=== PATIENT | male | born 1940 | race Caucasian/White ===

== ENCOUNTER 2017-08-25 07:59 | Day surgery (SDC) | payer MEDICARE ==
[2017-08-14 10:34] VITALS: BMI 24.9
[2017-08-25] MEDS ORDERED: Lidocaine/Epinephrine 1% 1:100000 10 ML IJ ONE (09:06)
[2017-08-25] MEDS ORDERED: Bupivacaine HCl 0.25% PF (10 ml) Inj ONE (09:06)
[2017-08-25] MEDS: ceFAZolin IV 2 gm in Dextrose 2 GM/50 ML BAG IVPB ONE ×2 (09:15→09:29)
--- NOTE | 2017-08-25 11:12 | PCM.SURG1 ---
Surgeon's Initial Post Op Note - Surgeon's Notes Surgeon: Milan Bowens MD [employer]: SHELBY Hoffman Type of Anesthesia: Local Pre-Operative Diagnosis: Sebaceous cyst of back 3x2 cm Operative Findings: Sebaceous cyst of back 3x2 cm Post-Operative Diagnosis: Sebaceous cyst of back 3x2 cm Operation Performed: Excision of Sebaceous cyst of back 3x2 cm. Layered closure of wound 3x2 cm Specimen/Specimens Removed: Sebaceous cyst Estimated Blood Loss: EBL {In ML}: 5 Blood Products Given: N/A Drains Used: No Drains Post-Op Condition: Good Date of Surgery/Procedure: 08/25/17 Time of Surgery/Procedure: 11:11
[2017-08-25 12:14] VITALS: BP 125/72; PULSE 75; RESP 20; TEMP 97.8; O2SAT 97
--- NOTE | 2017-08-25 22:01 | OP ---
PROCEDURE DATE: 08/25/2017 SURGEON: Bret Bowens MD [employer]: SHELBY Hoffman. PREOPERATIVE DIAGNOSES: Sebaceous cyst of the upper back. POSTOPERATIVE DIAGNOSES: Sebaceous cyst of the upper back. PROCEDURES: 1. Excision of sebaceous cyst of the upper mid back, 3 x 2 cm in size. 2. Layered closure of the wound, 3 x 2 cm size. TYPE OF ANESTHESIA: Local anesthesia plus sedation. ESTIMATED BLOOD LOSS: Around 5 mL. DRAINS: None. PATHOLOGY: The sebaceous cyst was sent to the pathology. COMPLICATIONS: None. INTRAOPERATIVE FINDINGS: The patient had approximately 3 x 2 cm sebaceous cyst of the upper mid back. DESCRIPTION OF PROCEDURE: On intraoperative steps, this 77-year-old male was diagnosed with a sebaceous cyst of the mid upper back and the patient was consented for the excision of the cyst and brought to the OR, placed in right lateral position. The back was prepped and draped in the usual sterile fashion. Local anesthesia was injected and elliptical incision was made and upper and lower flap was created with the medial and the lateral dissection was done. The cyst was completely excised from the underlying fascia and the subcutaneous tissue and it was sent for the table for pathology. Wound was irrigated. Now the upper flap was sutured with the underlying fascia and subcutaneous tissue. Lower flap was sutured to the underlying fascia and subcutaneous tissue. The deep layer of the subcu was taken with a 2-0 Vicryl. Another layer with 3-0 Vicryl and skin with 4-0 Monocryl and another layer of the skin with 5-0 nylon and dry sterile dressing was applied. The patient tolerated the procedure well. Count of the instrument and gauze was correct. There was no apparent complication. The patient was reversed from sedation and sent to the postanesthesia care unit in stable condition. Bret Bowens MD
== END 2017-08-25 10:48 | disposition home or self-care (01) ==
LOC: C.SDS 07:59
PROVIDERS: ATTEND Surgery Surgical Critical Care
DX: L72.3 Sebaceous cyst (principal)
CPT/HCPCS: 11403; 12032; 88305; J0690; J3010